=== PATIENT | female | born 1975 | race Caucasian/White ===

== ENCOUNTER 2016-07-03 13:52 | Emergency (ER) | payer OTHER ==
--- NOTE | 2016-07-03 14:18 | ED ---
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 She tried to pull on it and it suddenly came down, striking her in the head. It hurt, but she didn't think she was really hurt until a little blood trickled down her forehead. A bandage was applied and bleeding was controlled. She denies LOC, vomiting, amnesia, neck pain or headache. She does not feel dizzy or lightheaded. - History of Current Complaint Stated Complaint: HEAD LAC Time Seen by Provider: 07/03/16 13:57 Hx Obtained From: Patient Mechanism of Injury: Sharp/Blunt Trauma Onset/Duration: Sudden Onset Aggravating: Nothing Alleviating: Nothing Timing: Constant Onset Severity: Mild Current Severity: None Associated Signs & Symptoms: Pain - mild - Allergy/Home Medications Allergies/Adverse Reactions: Allergies Allergy/AdvReac Type Severity Reaction Status Date / Time No Known Allergies Allergy Verified 08/12/13 17:30 PMH/Surg Hx/FS Hx/Imm Hx Endocrine/Hematology History: Denies: Hx Diabetes Cardiovascular History: Denies: Hx Angina, Hx Congestive Heart Failure, Hx Coronary Artery Disease, Hx Hypercholesterolemia, Hx Hypertension, Hx Myocardial Infarction, Hx Valvular Heart Disease Respiratory History: Denies: Hx Asthma, Hx Chronic Obstructive Pulmonary Disease (COPD) - Cancer History Hx Chemotherapy: No Hx Radiation Therapy: No - Surgical History Surgery Procedure, Year, and Place: eye surgery, c section Infectious Disease History: Denies: Hx Hepatitis, Hx of Known/Suspected MRSA - Family History Known Family History: Positive: None - Social History Occupation: Employed Full-time Lives: With Family Alcohol Use: None Substance Use Type: Reports: None Smoking Status (MU): Never Smoked Tobacco Review of Systems Negative: Photophobia, Blurred Vision, Diplopia Negative: Edema Positive: Other - anterior scalp abrasion Negative: Headache, Weakness, Paresthesia, Numbness All Other Systems Reviewed And Are Negative: Yes Physical Exam Triage Information Reviewed: Yes Vital Signs Reviewed: Yes Appearance: Positive: Well-Appearing, No Pain Distress, Well-Nourished Skin: Positive: Warm, Skin Color Reflects Adequate Perfusion, Dry, Tender - 2 mm anterior scalp abrasion, Soft Head/Face: Positive: Normal Head/Face Inspection Eyes: Positive: EOMI, WALLACE, Conjunctiva Clear ENT: Positive: Hearing grossly normal, Pharynx normal, TMs normal Neck: Positive: Supple, Nontender Respiratory/Lung Sounds: Positive: Breath Sounds Present Cardiovascular: Positive: RRR Neurological: Positive: Sensory/Motor Intact, Alert, Oriented to Person Place, Time, CN Intact II-III, NV Bundle Intact Distally, Normal Gait Psychiatric: Positive: Affect/Mood Appropriate AVPU Assessment: Alert Laceration Repair Course/Dx - Differential Dx Differental Diagnoses: Abrasion, Avulsion, Cellulitis, Dehiscence, Hematoma, Laceration, Puncture Wound - Clinical Impression Provider Diagnoses: Abrasion, Head injury Discharge - Discharge Plan Condition: Stable Disposition: HOME Patient Education Materials: Head Injury (ED) Referrals: Lorenzo Gann MD [Primary Care Provider] - Additional Instructions: Please keep your wound clean and dry as it heals. You can wash and shampoo your hair as usual. If symptoms develop follow-up with your primary care provider, but if they become worse return to the emergency department.
[2016-07-03 14:40] VITALS: BP 126/66
== END 2016-07-03 14:50 | disposition home or self-care (01) ==
LOC: ED 13:52
DX: S00.91XA Abrasion of unspecified part of head, initial encounter (principal); S09.90XA Unspecified injury of head, initial encounter; W22.8XXA Striking against or struck by other objects, initial encounter; Y93.9 Activity, unspecified; Y92.9 Unspecified place or not applicable
CPT/HCPCS: 99282